=== PATIENT | female | born 1970 | race Two or more races ===

== ENCOUNTER 2025-05-22 13:19 | Outpatient (AMB) | payer MEDICAID, SELFPAY ==
--- NOTE | 2025-05-22 13:26 | PD.ORTHCLVIS ---
Vital signs 05/22/25 14:54 Height 1.57 m Height Method Measured Weight 92.703 kg Weight Measurement Method Standing Scale BMI 37.3 BP 123/80 Blood Pressure Source Automatic Cuff Blood Pressure Location Left Upper Arm Position Sitting Respiration 18 Pulse 84 Pulse Source Monitor Temp 97.9 F Temp Source Temporal Artery Scan Pulse Oximetry (%) 95 Oxygen Delivery Method Room Air Med/Allergies Allergies & Medications Allergies No Known Allergies Allergy (Verified 05/22/25 14:56) Medication Reconciliation diclofenac potassium 50 mg tablet 50 mg PO BID 05/22/25 [History Confirmed 05/22/25] Exam Exam Patient is in no acute distress and is cooperative with the examination today. Breathing is nonlabored. In no respiratory distress. Patient has no paraspinal tenderness. Spinal deformity cannot be appreciated. The gait of the patient is nonantalgic Bilateral extremities were evaluated and demonstrates sensation intact to light touch. Palpable pedal pulses are present. No significant edema is present. Bilateral knees were examined and the patient has full strength and range of motion.. The left hip was examined. Patient was able to flex to 90 degrees, adduct to 30 degrees, abduct to 40 degrees, internally rotate to 20 degrees, and externally rotate to 20 degrees. Patient has a negative logroll. Stinchfield is negative. The patient is nontender diffusely to touch. The right hip was examined. Patient was able to flex to 90 degrees, adduct to 30 degrees, abduct to 40 degrees, internally rotate to 10 degrees, and externally rotate to 20 degrees. Patient has a positive logroll Assessment and Plan Problem List (1) Arthritis of right hip: Status: Acute Plan: Patient is a 54-year-old female with arthritis. The pain is affecting her happiness and quality life. We will need to get x-rays. We will see her back after her xrays. 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 ([id number]) MA Intake Visit Data Collection New Patient or Established: New Patient (never been to [facility]) Reason for Visit:: POLYOSTEOARTHRITIS Seen by Clinical Staff ONLY (RN/MA): No Bindery Leadperson Required: Yes PCP or OBGYN visit in last 3 months: Yes Hx Now: No Do You Feel Safe at Home: Yes Authorities Contacted: N/A Questionairres Past Medical History Past Medical History Have you ever been diagnosed with any of the following: Subjective Visit Visit for: new patient and knee Immunization / Flu Flu Vaccine in the Last 12 Months: No Flu Vaccine Exclusion Criteria: No Exclusion Criteria History of Present Illness Chief complaint: right hip pain Patient is a 54 year old female with 15 years of right hip pain. The hip pain is bothering her quite life and happiness. She has difficulty putting on socks on the right. She uses 2 canes and is getting a walker. She has tried ibuprofen and diclofenac. Personal History Occupation: [employer] Red flag PMH: none BMI Counceling provided: Yes Pain Pain level (0-10): 9 Pain location: groin Pain quality: sharp Pain timing: increases with activity Associated signs & symptoms: stiffness Ambulatory data Ambulatory device: cane and walker Treatments Improvement with previous injections: No Improvement with PT: No Improvement with NSAIDS: yes Review of Systems Review of Systems: All systems negative unless otherwise noted in HPI.
--- NOTE | 2025-05-22 13:41 | XR_ITS ---
Examination:Right hip AP, lateral, AP pelvis 3 views Technique: Hip AP lateral, AP pelvis, 3 views Exam date and time:May 22, 2025 1356 hours INDICATIONS: Right hip pain 15 years. FINDINGS: Advanced right hip osteoarthritis, severe narrowing right hip joint Mild to moderate left hip osteoarthritis Bones of the pelvis intact No hip fractures IMPRESSION: Severe right hip osteoarthritis.
[2025-05-22 14:54] VITALS: BP 123/80; PULSE 84; RESP 18; TEMP 36.6; O2SAT 95; BMI 37.3
== END 2025-05-22 13:48 | disposition home or self-care (01) ==
LOC: HODSRG 13:19
PROVIDERS: PCP Family Medicine; Referring Provider Family Medicine; Supervising Provider Orthopaedic Surgery Adult Reconstructive Orthopaedic Surgery; Visit Provider Orthopaedic Surgery Adult Reconstructive Orthopaedic Surgery
DX: M16.11 Unilateral primary osteoarthritis, right hip (principal); M25.551 Pain in right hip
CPT/HCPCS: 73502; 99203; G0463

== ENCOUNTER 2025-06-18 14:02 | Outpatient (AMB) | payer MEDICAID, SELFPAY ==
--- NOTE | 2025-06-18 14:34 | ORTHONT_ITS ---
Vital signs 06/18/25 14:36 Height 1.57 m Height Method Stated Weight 92.193 kg Weight Measurement Method Standing Scale BMI 37.4 BP 148/85 H Blood Pressure Source Automatic Cuff Blood Pressure Location Left Upper Arm Position Sitting Respiration 18 Pulse 74 Pulse Source Monitor Temp 97.4 F Temp Source Temporal Artery Scan Pulse Oximetry (%) 97 Oxygen Delivery Method Room Air Med/Allergies Allergies & Medications Allergies No Known Allergies Allergy (Verified 06/18/25 14:37) Medication Reconciliation diclofenac potassium 50 mg tablet 50 mg PO BID 05/22/25 [History Confirmed 06/18/25] Exam Exam Patient is in no acute distress and is cooperative with the examination today. Breathing is nonlabored. In no respiratory distress. Patient has no paraspinal tenderness. Spinal deformity cannot be appreciated. The gait of the patient is nonantalgic Bilateral extremities were evaluated and demonstrates sensation intact to light touch. Palpable pedal pulses are present. No significant edema is present. Bilateral knees were examined and the patient has full strength and range of motion.. The left hip was examined. Patient was able to flex to 90 degrees, adduct to 30 degrees, abduct to 40 degrees, internally rotate to 20 degrees, and externally rotate to 20 degrees. Patient has a negative logroll. Stinchfield is negative. The patient is nontender diffusely to touch. The right hip was examined. Patient was able to flex to 90 degrees, adduct to 30 degrees, abduct to 40 degrees, internally rotate to 10 degrees, and externally rotate to 20 degrees. Patient has a positive logroll Right hip x-rays demonstrate complete joint space narrowing. She does have protrusio as well. She is a very shortened femoral head and it is collapsed Assessment and Plan Problem List (1) Arthritis of right hip: Status: Acute Plan: Patient is a 54-year-old female with arthritis. The pain is affecting her happiness and quality life. 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 She would benefit from a CT scan as she does have trivial acetabular elements to her bone stock. At this point in time, she is failed conservative treatment including injections, anti- inflammatories. We would plan to do this through a lateral approach due to her body habitus The nature and purpose of the total hip replacement, alternative method(s) of treatment, the material risks involved, and the possibility of complications were fully explained to the patient. The patient does NOT have any of the following contraindications to SUPA: - Active infection of the hip joint, OR - Active systemic bacteremia, OR - Active skin infection or open wound at surgical site, OR - Neuropathic arthritis, OR - Severe, rapidly progressive neurological disease, OR - Severe medical condition that makes risks of the surgery outweigh the potential benefit The patient was told the most common risks and complications associated with a total hip replacement include, but are not limited to: blood clots in the leg, fatal pulmonary embolism, dislocation of the prosthesis, intraoperative and postoperative fractures of the femur or acetabulum, infection, failure of the prosthesis or grafting materials, complications from anesthesia, reactions to blood transfusions, postoperative leg length inequality, instability of the hip replacement, nerve damage or injury, vascular injury, delayed wound healing, infection, other injury or even . In addition, there are risks associated with anesthesia given during this operation. Also, the patient was told that after undergoing a total hip replacement there may still be persistent pain or disability. The patient was informed that the success of this operation in part depends upon the mechanical devices which are going to be implanted and that these devices can fail or malfunction, and may need to be repaired or replaced and there are no guarantees as to the longevity of this device or its parts and that it or its parts could fail prematurely. The patient was also notified that during the course of surgery, there may be a need to use bone graft from donors, and that any bone graft used will be carefully screened for communicable diseases, including AIDS, hepatitis, Arie-Creutzfeldt, or other diseases, but despite the screening procedures, there is a small chance that they could contract one of these diseases. Finally, the patient was asked to follow completely and fully with all advice and recommended treatments, and that recovery and ultimate outcome are affected by their compliance with recommended treatment. We discussed the risks, benefits and treatment alternatives, and the patient is interested in proceeding with surgery. We will try to set this up as expeditiously as possible. Office Procedures GNS Level of Care Nursing/Assessment Patient Status: Established Patient Nursing Assessment/Reassesment: Medication Reconciliation, Update PMH in EMR and Vital Signs Coordination of Care: Complex Care and Chronic Disease 1-5, Education Complex Pt/Fam, Consent,records obtained, informed consent, Results/Orders obtained and Staff clarify orders Established Patient Charge Established Patient Point Assignment: 95 Established Patient Point Charge: EP Level 3 (80-115) MA Intake Visit Data Collection New Patient or Established: Established Patient (seen at [facility] within 3 years) Reason for Visit:: POLYOSTEOARTHRITIS Seen by Clinical Staff ONLY (RN/MA): No Berry Picker Required: Yes PCP or OBGYN visit in last 3 months: Yes Hx Now: No Do You Feel Safe at Home: Yes Authorities Contacted: N/A Questionairres Past Medical History Past Medical History Have you ever been diagnosed with any of the following: Subjective Visit Visit for: follow up visit, knee and x-rays Immunization / Flu Flu Vaccine in the Last 12 Months: No Flu Vaccine Exclusion Criteria: No Exclusion Criteria History of Present Illness Chief complaint: right hip pain Patient is a 54 year old female with 15 years of right hip pain. The hip pain is bothering her quite life and happiness. She has difficulty putting on socks on the right. She uses 2 canes and is getting a walker. She has tried ibuprofen and diclofenac. Personal History Occupation: [employer] Red flag PMH: none BMI Counceling provided: Yes Pain Pain level (0-10): 7 Pain location: groin Pain quality: sharp Pain timing: increases with activity Associated signs & symptoms: stiffness Ambulatory data Ambulatory device: walker Treatments Improvement with previous injections: No Improvement with PT: No Improvement with NSAIDS: yes Review of Systems Review of Systems: All systems negative unless otherwise noted in HPI.
[2025-06-18 14:36] VITALS: BP 148/85; PULSE 74; RESP 18; TEMP 36.3; O2SAT 97; BMI 37.4
== END 2025-06-18 14:48 | disposition home or self-care (01) ==
LOC: HODSRG 14:02
PROVIDERS: PCP Family Medicine; Referring Provider Family Medicine; Supervising Provider Orthopaedic Surgery Adult Reconstructive Orthopaedic Surgery; Visit Provider Orthopaedic Surgery Adult Reconstructive Orthopaedic Surgery
DX: M16.11 Unilateral primary osteoarthritis, right hip (principal); M25.551 Pain in right hip
CPT/HCPCS: 99213; G0463

== ENCOUNTER 2025-07-20 19:24 | Emergency (ER) | payer MEDICAID, SELFPAY ==
[2025-07-20 19:25] VITALS: BP 138/83; PULSE 77; RESP 20; TEMP 36.7; O2SAT 96
--- NOTE | 2025-07-20 21:39 | PD.EDRME ---
Rapid Medical Screening Exam RME Arrival date/time: 07/20/25 19:24 This is a case of 55-year-old female who have history of varicose vein engorged came in in the emergency room due to bleeding varicose vein on the right lower extremities denies any injury or trauma Chief Complaint: General Adult/Misc Complain Time Seen by Provider: 07/20/25 19:55 Vital signs: Vital Signs Temperature 98.1 F 07/20/25 19:25 Pulse Rate 77 07/20/25 19:25 Respiratory Rate 20 07/20/25 19:25 Blood Pressure 138/83 H 07/20/25 19:25 Pulse Oximetry (%) 96 07/20/25 19:25 Oxygen Delivery Method Room Air 07/20/25 19:25
[2025-07-20 22:18] LABS: Basophils # (Auto) 0.0 Thou/mm3 (0.0-0.2); Basophils % (Auto) 0 % (0-2.5); Eosinophils # (Auto) 0.0 Thou/mm3 (0.0-0.5); Eosinophils % (Auto) 0 % (0-10); Hematocrit 37.0 % (36.0-46.0); Hemoglobin 11.9 g/dL (12.0-16.0); Immature Granulocytes Auto 0.02 Thou/mm3 (0.00-0.00); Lymphocytes # (Auto) 1.5 Thou/mm3 (1.0-4.8); Lymphocytes % (Auto) 19 % (10-50); Mean Corpuscular HGB Conc 32.2 g/dl (31.0-37.0); Mean Corpuscular Hemoglobin 26.2 pg (25.0-35.0); Mean Corpuscular Volume 82 fL (80-100); Monocytes # (Auto) 0.5 Thou/mm3 (0.0-0.8); Monocytes % (Auto) 6 % (0-12); Neutrophils # (Auto) 6.0 Thou/mm3 (1.8-7.7); Neutrophils % (Auto) 74 % (37-80); Nucleated Red Blood Cell # 0.00 Thou/mm3 (0.00-0.00); Nucleated Red Blood Cell % 0 /100 WBC (0); Platelet Count 193 Thou/mm3 (140-440); RDW Standard Deviation 46.9 fL (36.4-46.3); Red Blood Count 4.54 Miln/mm3 (4.00-5.20); White Blood Count 8.0 Thou/mm3 (3.6-11.0)
[2025-07-20 22:35] LABS: Alanine Aminotransferase 29 U/L (10-49); Albumin, Serum 4.5 gm/dL (3.5-5.0); Albumin/Globulin Ratio 1.7 (1.2-2.2); Alkaline Phosphatase 106 U/L (46-116); Anion Gap 8 (7-16); Aspartate Amino Transferase 19 U/L (0-34); BUN/Creatinine Ratio 11 Ratio (12-20); Bilirubin,Total 0.3 mg/dL (0.3-1.2); Blood Urea Nitrogen 9 mg/dL (9-23); Calcium 9.8 mg/dL (8.3-10.6); Calcium (Corrected) 9.8 mg/dL (8.5-10.1); Carbon Dioxide 26.3 mMol/L (20.0-31.0); Chloride 108 mMol/L (98-107); Creatinine (Component) 0.8 mg/dL (0.6-1.3); Globulin 2.7 gm/dL (2.3-3.5); Glucose 114 mg/dL (74-106); Osmolality,Calculated 282 (275-295); Potassium 3.8 mMol/L (3.4-5.1); Sodium 142 mMol/L (136-145); Total Protein 7.2 gm/dL (5.7-8.2); eGFR > 60 See Note
[2025-07-20 23:30] VITALS: BP 158/107; BP 171/94; PULSE 74; RESP 19; TEMP 36.9; O2SAT 97
[2025-07-20 23:51] VITALS: BP 154/91; PULSE 71; RESP 18; TEMP 36.7; O2SAT 98
--- NOTE | 2025-07-21 00:11 | PD.EDWOUND ---
ED Wound/Laceration-RME/HPI General Chief Complaint: General Adult/Misc Complain Stated Complaint: RIGHT LOWER LEG VARICOSE VEIN BLEEDING Time Seen by Provider: 07/20/25 19:55 Arrival date/time: 07/20/25 19:24 RME / HPI RME / HPI narrative: 07/20/25 19:24 This is a case of 55-year-old female who have history of varicose vein engorged came in in the emergency room due to bleeding varicose vein on the right lower extremities denies any injury or trauma DR. PUGH MAIN ED EVALUATION: 55 y/o female with Hx of Varicose Veins presents to bleeding varicose vein to the RLL s/p shower x approximately 7 hours ago. Patient's applied cloths around the patient's RLE to stop the squirting blood. EMS was called and advised patient to come to ED for further evaluation. Patient pending blood analysis with PMD prior to upcoming hip procedure. Denies any injury. Related Data Home Medications ?Medication ?Instructions ?Recorded ?Confirmed diclofenac potassium 50 mg tablet 50 mg PO BID 05/22/25 06/18/25 Allergies Allergy/AdvReac Type Severity Reaction Status Date / Time No Known Allergies Allergy Verified 07/20/25 19:25 Review of Systems Review of Systems Systems Reviewed: All systems reviewed, normal except as documented Past Medical History Past Medical History CARDIAC: Positive Varicose Veins ED Exam Narrative Physical exam: Generally patient is alert [id number] and in no obvious distress skin shows no obvious bruising, extremities show a very small area of previous bleeding over a varicosity to the right lower lateral aspect of the leg. No active bleeding at this time. Heart regular rate and rhythm, lungs clear to auscultation equal bilaterally, abdomen soft bowel sounds present's and nontender Course Quality Measures none Orders Category Date Time Status CBC Stat Lab 07/20/25 21:59 Completed CMP [Comprehensive Metabolic Panel] Stat Lab 07/20/25 21:59 Completed PT [Prothrombin Time with INR] Stat Lab 07/21/25 00:19 Completed Prothrombin Time with INR Stat Lab 07/20/25 21:59 Completed Vital Signs Vital signs: Vital Signs Temperature 98.1 F 07/20/25 19:25 Pulse Rate 77 07/20/25 19:25 Respiratory Rate 20 07/20/25 19:25 Blood Pressure 138/83 H 07/20/25 19:25 Pulse Oximetry (%) 96 07/20/25 19:25 Oxygen Delivery Method Room Air 07/20/25 19:25 Wound / Laceration MDM Narrative MDM Narrative:: Scribe Attestation: I, Sade José, am scribing for and in the presence of Dr. Pugh. Provider Notation: Although this document has been carefully reviewed, there may still be some phonetic and other typographical errors. These errors are purely grammatical due to imperfections in the software program and should not be construed in any way to compromise the substance of the patient's medical care during this visit. Patient is not anemic. Platelet count is normal. PTT was 63. Repeated it was greater than 63. This is a lot because the patient is not on Coumadin and has no liver failure. Possibly the patient may have vitamin K deficiency. I will refer the patient to her primary care physician for further treatment and evaluation. A compression dressing was applied to the right lower extremity. Patient had no episodes of bleeding here in the emergency room. I interpreted all labs. Patient data External records reviewed:: [facility] previous records (No prior ED records available for review.) Clinical information provided by:: patient and spouse () Social determinants that could affect healthcare access:: none Patient has the following chronic illnesses:: Varicose Veins How is presenting disease/condition affected by chronic disease/condition?: exacerbated by Evaluation data The following diagnostics were reviewed and interpreted by me:: lab results Lab and/or radiology exams considered but not ordered:: None Interpretation Summary: See MDM above Medications / Prescriptions Medications or Prescriptions considered but not ordered:: None Medication administrations:: See above if any Consultations Consultation(s) initiated? (list below): No Diagnosis Wound Differential Diagnosis: laceration, abscess, abrasion and avulsion of skin Most likely diagnosis given after review of the tests above:: None Admission Indicated Admission indicated?: not indicated Explain why admission is indicated or not indicated:: Patient does not meet admission criteria Admission Request Was there a request for admission?: No Disposition Plan Disposition Plan: Discharge Discharge Attestation Discharge Attestation: The patient and all family members were given an opportunity to ask questions and understood the discharge instructions. Discharge instructions specifically effects, indications for sooner follow up or return to the emergency department, and the expected course of current diagnosis. Patient condition: Stable Discharge Plan Plan Patient Disposition: HOME (Self Care) Prescriptions/Referrals Prescriptions/Med Rec: No Action diclofenac potassium 50 mg tablet 50 mg PO BID Referrals: Yehuda Hager MD [Primary Care Provider, Family Practice] - In 1 week Problem List Clinical Impression: Bleeding from varicose vein, Coagulopathy Patient/Caregiver Discharge Instructions Education Materials: First Aid: Bleeding, ED Varicose Veins Additional Instructions: Keep the bandage applied and dry for the next 2 days. Follow-up with your doctor for further treatment and evaluation and possible hematology referral for your coagulopathy. Print Language: [place] Stand Alone Forms: [employer] Award Info., Patient Portal Info Letter
[2025-07-21 00:20] LABS: Prothrombin Time > 63.0 Seconds (9.0-12.2)
[2025-07-21 02:16] LABS: Prothrombin Time > 63.0 Seconds (9.0-12.2)
[2025-07-21 02:40] VITALS: BP 134/80; PULSE 59; RESP 18; TEMP 36.4; O2SAT 96
== END 2025-07-21 02:41 | disposition home or self-care (01) ==
PROVIDERS: Nurse Practitioner Family; Emergency Provider Emergency Medicine; PCP Family Medicine
DX: I83.891 Varicose veins of right lower extremity with other complications (principal); D68.9 Coagulation defect, unspecified
CPT/HCPCS: 36415; 80053; 85025; 85610; 99283